=== PATIENT | male | born 1950 | race African-American/Black ===

== ENCOUNTER → 2018-09-02 | Outpatient (CLI) | payer OTHER ==
[~2018-09-02] MED LIST: REGADENOSON 0.4 MG/5 ML DISP.SYRIN. IV ONE
--- NOTE | 2018-09-02 11:32 | PCVCIMAG ---
APPROVED REPORT Study performed: 09/02/2018 07:42:08 EXAM: Comprehensive 2D, Doppler, and color-flow Echocardiogram Patient Location: Echo lab Status: routine BSA: 2.06 HR: 79 bpmBP: 126/78 mmHg Rhythm: NSR Other Information Study Quality: Adequate Risk Factors: Cardiac Risk Factors: HTN Indications Diabetes Dyspnea CAD 2D Dimensions IVSd: 15.20 (7-11mm) LVDd: 50.94 mm PWd: 15.40 (7-11mm)Ascending Ao: 39.79 (22-36mm) LVDs: 38.73 (25-40mm) Left Atrium: 51.31 (27-40mm) Aortic Root: 34.38 mm LV Single Plane 4CH: 50.35 % LV Single Plane 2CH: 47.82 % Biplane EF: 49.0 % Volumes Left Atrial Volume (Systole) Single Plane 4CH: 87.64 mLSingle Plane 2CH: 95.06 mL LA ESV Index: 48.00 mL/m2 Aortic Valve AoV Peak Isra.: 1.60 m/s AO Peak Gr.: 10.28 mmHgLVOT Max P.64 mmHg LVOT Max V: 0.95 m/s Mitral Valve E/A Ratio: 0.9 MV Decel. Time: 243.08 ms MV E Max Isra.: 0.77 m/s MV A Isra.: 0.87 m/s IVRT: 159.17 ms Pulmonary Valve PV Peak Isra.: 0.95 m/sPV Peak Gr.: 3.59 mmHg Pulmonary Vein P Vein S: 0.26 m/sP Vein A: 0.28 m/s P Vein D: 0.41 m/sP Vein A Dur.: 121.1 msec P Vein S/D Ratio: 0.63 Left Ventricle The left ventricle is normal size. There is normal LV segmental wall motion. Mild concentric left ventricular hypertrophy. The overall left ventricular systolic function appears within the lower limits of normal. LVEF is 50%. Grade I - abnormal relaxation pattern. Right Ventricle The right ventricle is normal size. The right ventricular systolic function is normal. Atria Left atrium is moderately dilated. Right atrium is moderately dilated. Aortic Valve Aortic valve is calcified. No aortic regurgitation is present. There is no aortic valvular stenosis. Mitral Valve The mitral valve is normal in structure. There is no mitral valve regurgitation noted. No evidence of mitral valve stenosis. Tricuspid Valve The tricuspid valve is normal in structure. There is no tricuspid valve regurgitation noted. Pulmonic Valve The pulmonary valve is normal in structure. There is no pulmonic valvular regurgitation. Great Vessels The aortic root is normal in size. The ascending aorta is mildly dilated to 4.0 cm. IVC is normal in size and collapses >50% with inspiration. Pericardium There is no pericardial effusion. There is no pleural effusion. <Conclusion> The left ventricle is normal size. Mild concentric left ventricular hypertrophy. The overall left ventricular systolic function appears within the lower limits of normal. Grade I - abnormal relaxation pattern. The right ventricle is normal size. Left atrium is moderately dilated. Aortic valve is calcified. There is no aortic valvular stenosis. There is no mitral valve regurgitation noted. There is no tricuspid valve regurgitation noted.
--- NOTE | 2018-09-02 11:35 | PCVCIMAG ---
APPROVED REPORT Imaging Protocol: Rest Tc-99m/Stress Tc-99m 1 day Study performed: 09/02/2018 09:05:42 Indication: CAD, HAND Patient Location: Out-Patient Stress Nurse: Jane Kelly RN, JOY Cullen Tech:Gibran GrossmanLEELA Ht: 5 ft 6 in Wt: 215 lbs BSA: 2.06 m2 HR: 75 bpm BP: 180/81 mmHg BMI: 34.69 Rhythm: Sinus Rhythm, First Degree AV Block, RBBB Medical History Medical History: Age, Hyperlipidemia, HTN, CA, Dm Non insulin, Smoker Medications: ASA, Atorvastatin, Plavix, Uloric, Glipizide, Aldactone, HCTZ, Januvia, Lisinopril, Metformin, Toprol XL Allergies: No known drug allergies Previous Cardiac Procedures: CA Pretest Chest Pain Characteristics: No chest pain Exercise History: Sedentary Physical Disabilities: Gout Resting Data Rest SPECT myocardial perfusion imaging was performed in supine position 45 minutes following the intravenous injection of 10.4 mCi of Tc-99m Sestamibi. Time of rest injection: 829 Date: 09/02/2018 Administration Route: IV Administration Site: Right Arm Pharmacologic Stress Pharmacologic stress test was performed by injecting Regadenoson 0.4 mg IV push over 10-15 seconds immediately followed by the intravenous injection of 32.2 mCi of Tc-99m Sestamibi. Time of stress injection: 954 Date: 09/02/2018 Administration Route: IV Administration Site: Right Arm Gated Stress SPECT was performed 45 minutes after stress injection. The images were gated to evaluate regional wall motion and calculate left ventricular ejection fraction. Stress Test Details Stress Test: Pharmacologic stress testing performed using 0.4 mg of regadenoson per 5 mL given IV over 10 seconds. Reason for pharmacologic stress test: Gout. HRMax Heart Rate (APMHR): 151 bpm Resting HR: 75 bpmTarget HR (85% APMHR): 128 bpm Max HR Achieved: 88 bpm % of APMHR: 58 Recovery HR: 83 bpm BP Resting BP: 180/81 mmHg Max BP: 177/80 mmHg Recovery BP: 157/74 mmHg ECG Resting ECG: Sinus Rhythm, 1st degree AV block, RBBB Stress ECG: Sinus Rhythm, 1st degree AV block, RBBB ST Change: Non-ischemic Recovery ECG: Sinus Rhythm, 1st degree AV block, RBBB Clinical Reason for Termination: Completed protocol Stress Symptoms: Dyspnea, Nausea Exercise duration: min 55 sec Symptoms resolved with caffeine. Study Quality Study: Good Study Data Post stress, the left ventricular ejection was 49%.. SSS: 13 SRS: 7 SDS: 7 TID = 0.92. Perfusion There is a medium area of moderately reduced uptake in the basal and mid segment of the inferior wall which is seen on the stress images and improves on the resting images. This area thickens and moves normally and is most consistent with ischemia. Wall Motion Normal left ventricular wall motion. Nuclear Conclusion ECG Findings: negative for ischemia Clinical Findings: non-diagnostic Nuclear Findings: positive for ischemia Exercise Capacity: not assessed Left Ventricular Function: normal There is a reversible defect in the lateral wall, consistent with ischemia. The LV systolic function is at the lower limits of normal.
== END | disposition home or self-care (01) ==
LOC: PCVCIMAG 07:38
PROVIDERS: ATTEND Internal Medicine Cardiovascular Disease
DX: I25.10 Atherosclerotic heart disease of native coronary artery without angina pectoris (principal); R06.09 Other forms of dyspnea; E11.9 Type 2 diabetes mellitus without complications
CPT/HCPCS: 78452; 93017; 93306; A9500; J2785